=== PATIENT | female | born 1990 | race American Indian/Alaskan Native ===

== ENCOUNTER 2018-02-17 17:09 | Emergency (ER) | payer MEDICAID, OTHER ==
[2018-02-17 17:47] VITALS: BMI 33.4
--- NOTE | 2018-02-17 19:09 | C.PDOC ---
History Of Present Illness 27 year old female presents to the ER with a complaint of heavy vaginal bleeding for the past 2 weeks now associated with generalized weakness. 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 She states she goes through 3-4 large pads a day. Denies chest pain, SOB, or palpitations or dizziness. Time Seen by Provider: 02/17/18 17:47 Chief Complaint (Nursing): Female Genitourinary History Per: Patient History/Exam Limitations: no limitations Onset/Duration Of Symptoms: Days Current Symptoms Are (Timing): Still Present Quality Of Discomfort: Unable To Describe Associated Symptoms: Other ((-) SOB, Palpitations (+) Vaginal bleeding, Generalized weakness). denies: Chest Pain Alleviating Factors: None Recent travel outside of the [place]: No Abnormal Vaginal Bleeding: Yes Past Medical History Reviewed: Historical Data, Nursing Documentation, Vital Signs Vital Signs: Last Vital Signs Temp 99.6 F 02/17/18 17:45 Pulse 81 02/17/18 17:45 Resp 20 02/17/18 17:45 BP 103/72 02/17/18 17:45 Pulse Ox 100 02/17/18 21:29 - Medical History PMH: Denies: Depression Family History: States: Unknown Family Hx - Social History Hx Tobacco Use: No Hx Alcohol Use: Yes Hx Substance Use: No - Immunization History Hx Tetanus Toxoid Vaccination: No Hx Influenza Vaccination: No Hx Pneumococcal Vaccination: No Review Of Systems Constitutional: Positive for: Weakness. Negative for: Fever, Chills Cardiovascular: Negative for: Chest Pain, Palpitations Respiratory: Negative for: Cough, Shortness of Breath Gastrointestinal: Negative for: Nausea, Vomiting Genitourinary: Positive for: Vaginal Bleeding Neurological: Negative for: Weakness, Numbness Physical Exam - Physical Exam Appears: Non-toxic Skin: Normal Color, Warm, Dry Head: Atraumatic, Normacephalic Eye(s): bilateral: Normal Inspection Oral Mucosa: Moist Neck: Normal, Supple Chest: Symmetrical, No Tenderness Cardiovascular: Rhythm Regular Respiratory: Normal Breath Sounds, No Rales, No Rhonchi, No Wheezing Gastrointestinal/Abdominal: Soft, Tenderness (Suprapubic), No Guarding, No Rebound Back: No CVA Tenderness Neurological/Psych: Oriented x3, Normal Speech ED Course And Treatment - Laboratory Results Result Diagrams: 02/17/18 19:22 02/17/18 19:22 Lab Interpretation: Abnormal (Hgb 6.2, Hct 22.6) O2 Sat by Pulse Oximetry: 100 (Room air) Pulse Ox Interpretation: Normal - CT Scan/US Pelvic US Other Rad Studies (CT/US): Read By Radiologist, Radiology Report Reviewed CT/US Interpretation: EXAM: US Pelvis Complete, Transabdominal. US Pelvis, Transvaginal. CLINICAL HISTORY: 27 years old, female; Signs and symptoms; Menstruation abnormalities;. Irregular menstruation; Additional info: Vag bleeding. TECHNIQUE: Real-time transabdominal and transvaginal pelvic ultrasound (complete) with image. documentation. Transvaginal imaging was used for better evaluation of the endometrium and. adnexa. COMPARISON: No relevant prior studies available. FINDINGS: Uterus/cervix: 3.5 x 2.4 x 2.0 cm submucosal fibroid posterior uterus. Endometrial stripe measures 1.8 cm in thickness. Right ovary: Multiple small follicles in the periphery of the right ovary with prominent central stroma. Normal blood flow. Left ovary: Unremarkable. No mass. Normal blood flow. Free fluid: Very small amount of free fluid in the pelvis which is probably physiologic. Vasculature: There is some vascular signal along the periphery of the endometrial canal which is. nonspecific. IMPRESSION: 1. Multiple small follicles in the periphery of the right ovary with prominent central stroma. Findings. suggest polycystic ovarian syndrome. Correlation with clinical findings would be helpful. 2. 3.5 x 2.4 x 2.0 cm submucosal fibroid posterior uterus. This can be a source of vaginal bleeding. 3. There is some vascular signal along the periphery of the endometrial canal which is nonspecific. Thank you for allowing us to participate in the care of your patient. Dictated and Authenticated by: Coleman Fontaine MD. 02/17/2018 9:11 PM Eastern Time ([place] & [place]) Progress Note: Blood work and transvaginal US ordered. 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 I have reviewed the chart and agree that the record accurately reflects my personal performance of the history, physical exam, medical decision making, and the department course for this patient. I have also personally directed, reviewed, and agree with the discharge instructions and disposition.
[2018-02-17 19:25] LABS: BASO % 0.6 % (0.0-2.0); EOS # 0.1 K/uL (0.0-0.7); EOS % 1.8 % (0.0-4.0); HEMOGLOBIN 6.7 g/dL (11.0-16.0); LYMPH # 1.8 K/uL (1.0-4.3); LYMPH % 23.7 % (20.0-40.0); MEAN CELL VOLUME 60.2 fL (81.0-99.0); MEAN CORPUSCULAR HEMOGLOBIN 17.8 pg (27.0-31.0); MEAN CORPUSCULAR HGB CONC 29.6 g/dL (33.0-37.0); MEAN PLATELET VOLUME 8.5 fL (7.2-11.7); MONO # 0.4 K/uL (0.0-0.8); MONO % 5.7 % (0.0-10.0); NEUT # 5.1 K/uL (1.8-7.0); NEUT % 68.2 % (50.0-75.0); NRBC % 0.1 % (0.0-2.0); RBC 3.76 Mil/uL (3.80-5.20); RED CELL DISTRIBUTION WIDTH 21.8 % (11.5-14.5); WHITE BLOOD COUNT 7.4 K/uL (4.8-10.8)
[2018-02-17 19:40] LABS: ALB/GLOB RATIO 1.2 (1.0-2.1); ALT/SGPT 24 U/L (9-52); AST/SGOT 18 U/L (14-36); BLOOD UREA NITROGEN 10 mg/dL (7-17); CALCIUM 9.3 mg/dl (8.6-10.4); GFR NON-AFRICAN AMERICAN > 60
[2018-02-17 21:54] VITALS: BP 126/75; PULSE 75; RESP 18; TEMP 98.4; O2SAT 99
--- NOTE | 2018-02-18 11:18 | US ---
Date of service: 02/17/2018 HISTORY: vag bleeding COMPARISON: None available. TECHNIQUE: Real-time transabdominal pelvic ultrasound was performed. In addition a transvaginal pelvic ultrasound was necessary to better depict pelvic anatomy. FINDINGS: UTERUS: Heterogeneous uterine echotexture. Measures 9.8 x 5.3 x 5.6 cm. Anteverted. Mid posterior uterine fibroid appears submucosal and measures approximately 3.5 x 2.4 x 2.0 cm. ENDOMETRIUM: Measures 1.8 cm in diameter. Increased vascularity. CERVIX: Nabothian cyst measuring approximately 1.3 cm. RIGHT OVARY: Measures 4.2 x 2.2 x 3.3 cm. Blood flow is demonstrated. Follicles. LEFT OVARY: Measures 3.3 x 2.6 x 2.9 cm. Blood flow is demonstrated. Follicles. FREE FLUID: Small pelvic free fluid. OTHER FINDINGS: None. IMPRESSION: Mild vascularity involving the endometrium, nonspecific. Correlate clinically including quantitative beta HCG and recent status. 3.5 cm submucosal fibroid, posterior uterus. Numerous small follicles are evident within the periphery of both ovaries, right greater than left. Correlate clinically as findings may suggest polycystic ovarian syndrome. Preliminary impression was provided by virtual radiologic.
== END 2018-02-17 21:53 | disposition home or self-care (01) ==
LOC: C.ER 17:09
DX: D25.9 Leiomyoma of uterus, unspecified (principal); N93.9 Abnormal uterine and vaginal bleeding, unspecified